=== PATIENT | male | born 1980 | race Caucasian/White ===

== ENCOUNTER 2019-07-31 21:11 | Emergency (ER) | payer OTHER ==
[~2019-07-31] VITALS: Ht 185.4 cm; Wt 76.2 kg
[2019-07-31 21:16] VITALS: Ht 185.4 cm; Wt 76.2 kg
[2019-07-31 21:46] VITALS: BP 141/86
== END 2019-07-31 21:46 | disposition home or self-care (01) ==
LOC: ED 21:11
DX: S80.812A Abrasion, left lower leg, initial encounter (principal); W22.8XXA Striking against or struck by other objects, initial encounter; Y93.89 Activity, other specified; Y92.89 Other specified places as the place of occurrence of the external cause; Y99.8 Other external cause status